=== PATIENT | female | born 1965 | race Caucasian/White ===

== ENCOUNTER 2020-07-31 15:25 | Emergency (ER) | payer BC, MEDICAID, SELFPAY ==
--- NOTE | 2020-07-31 15:29 | ED.UPPEXIN ---
HPI - Extremity Injury (Upper) General Chief Complaint: Extremity Injury, Upper Stated Complaint: lt wrist injury Time Seen by Provider: 07/31/20 15:29 Source: patient and RN notes reviewed History of Present Illness HPI narrative: Patient is a 54-year-old female who presents the urgent care with complaints of left wrist pain. Patient denies of any known injury or trauma. States that she has had tendinitis in the past and it feels very similar but is worsening in pain. Patient denies of any recent repetitive motion activities or strenuous V lifting, pushing, pulling. No other acute complaints. Patient states that she has taken Tylenol, ibuprofen, used a splint to the rest, as well as ice. No acute distress noted. Patient aware of the plan of care. Some parts of this dictation were generated by voice recognition software and may contain typographical and/or grammatical inaccuracies. Related Data Home Medications Medication Instructions Recorded Confirmed albuterol sulfate 90 mcg/actuation 2 inhalation INHALATION Q4-6H PRN 05/08/19 06/26/20 breath activated powder inhaler cholecalciferol (vitamin D3) 125 5,000 unit PO DAILY 05/08/19 06/26/20 mcg (5,000 unit) tablet melatonin 3 mg tablet 3 mg PO DAILY tablet 05/08/19 06/26/20 paroxetine HCl 20 mg tablet 20 mg PO DAILY 05/08/19 06/26/20 vitamin B complex 1 tablet PO DAILY 06/30/19 06/26/20 multivitamin 1 tablet PO DAILY 11/09/19 06/26/20 Allergies Allergy/AdvReac Type Severity Reaction Status Date / Time Penicillins Allergy Unknown unknown Verified 06/21/20 11:34 Review of Systems Review of Systems: Narrative: CONSTITUTIONAL: Denies fever, chills, or sweats. EYES: Denies visual changes, redness, or discharge. ENT: Denies rhinorrhea, congestion, sore throat, or otalgia. CARDIOVASCULAR: Denies chest pain, palpitations, or edema. RESPIRATORY: Denies cough or dyspnea. GASTROINTESTINAL: Denies abdominal pain, nausea, vomiting, or diarrhea. GENITOURINARY: Denies dysuria or hematuria. SKIN: Denies rash or itching. MUSCULOSKELETAL: Reports of left wrist pain NEUROLOGIC: Denies headache, numbness, or weakness. All other systems reviewed are negative, except as documented in HPI. [facility] Past Medical History Medical History (Updated 07/31/20 @ 15:50 by MERRITT Ronquillo) Chronic obstructive pulmonary disease, unspecified Diastolic dysfunction Environmental allergies History of colon polyps Hyperlipidemia Hypothyroidism (acquired) Insomnia, unspecified UNRULY (obstructive sleep apnea) Type 2 diabetes mellitus without complication, without long-term current use of insulin Vitamin B12 deficiency Vitamin D deficiency Surgical History Surgical History History of adenoidectomy age 6 History of foot surgery right foot Family History Family History Mother Cerebrovascular accident Carcinoma of colon Family history of multiple sclerosis Father Diabetes mellitus Other Family history of allergic disorder Social History Social History Social History: pt states smokes a pack to 2 packs a day Smoking packs per day: 1 Smoking cigarettes per day: 20.0 Smoking status: Current every day smoker Tobacco type: cigarettes Second hand tobacco smoke exposure: Yes Alcohol intake: current Substance use: never Substance use type: does not use Comments At the time of my signature, I reviewed and agree with the nursing past medical, surgical, social, and family history. There is no relevant family history pertinent to the patient complaint. Exam Narrative: Exam Narrative: GENERAL: This is a well-nourished, well-developed patient, in no apparent distress. HEAD: normocephalic, atraumatic. EYES: PERRL. Sclera clear/white. Vision is grossly intact. EARS: External ears normal NOSE: External n
[2020-07-31 15:32] VITALS: BP 162/80; PULSE 76; RESP 20; TEMP 36.7; O2SAT 99
[2020-07-31 15:37] VITALS: BP 162/80; PULSE 76; RESP 20; TEMP 36.7; O2SAT 99
== END 2020-07-31 15:56 | disposition home or self-care (01) ==
PROVIDERS: Emergency Provider Nurse Practitioner Family; PCP Family Medicine
DX: M77.8 Other enthesopathies, not elsewhere classified (principal); F17.210 Nicotine dependence, cigarettes, uncomplicated; J44.9 Chronic obstructive pulmonary disease, unspecified; E78.5 Hyperlipidemia, unspecified; E03.9 Hypothyroidism, unspecified; G47.33 Obstructive sleep apnea (adult) (pediatric); E11.9 Type 2 diabetes mellitus without complications; E55.9 Vitamin D deficiency, unspecified
CPT/HCPCS: 99213; G0463

== ENCOUNTER 2020-12-09 09:45 | Outpatient (CLI) | payer BC, SELFPAY ==
--- NOTE | ~2020-12-09 | CT_ITS ---
EXAMINATION: CT lung screening DATE: 12/09/2020 10:01 INDICATION: History of nicotine dependence TECHNIQUE: Computed tomography (CT) of the chest was performed without intravenous contrast. The dose -length product was 430.29 mGy-cm. Automated exposure control and iterative reconstruction technique were employed. COMPARISON: Chest x-ray dated 12/19/2010 FINDINGS: There is atherosclerosis of the aorta and coronary arteries. Heart size is normal. No thora cic lymphadenopathy. No significant pleural or pericardial effusion. There are multiple miliary nodul es in both lobes predominantly upper lobe measuring 3 mm or less. There is a 5 mm right lower lobe no dule which is subsolid, image 58. No pneumothorax. Mild thoracic spondylosis. The upper abdomen is gr ossly unremarkable. IMPRESSION: 1. Lung-RADS category 2: Benign appearance or behavior. Continue annual screening with noncontrast lo w-dose chest CT in 12 months. Reviewed, dictated and finalized at location A. IMPRESSION: 1. Lung-RADS category 2: Benign appearance or behavior. Continue annual screeni ng with noncontrast low-dose chest CT in 12 months.
== END 2020-12-09 09:46 | disposition home or self-care (01) ==
LOC: ANHIMG 09:46
PROVIDERS: PCP Family Medicine; Visit Provider Nurse Practitioner Family
DX: Z12.2 Encounter for screening for malignant neoplasm of respiratory organs (principal); Z87.891 Personal history of nicotine dependence
CPT/HCPCS: 71271

== ENCOUNTER 2021-12-14 07:51 | Outpatient (CLI) | payer BC, SELFPAY ==
--- NOTE | ~2021-12-14 | CT_ITS ---
EXAMINATION: CT lung screening DATE: 12/14/2021 08:07 INDICATION: Z87.891 - Personal history of nicotine dependence TECHNIQUE: Computed tomography (CT) of the chest was performed without intravenous contrast. Addition al 3D reconstructions utilizing coronal maximum intensity projection (MIP) were performed. Automated exposure control and iterative reconstruction technique were employed. The dose-length product was 37 6.08 mGy-cm. COMPARISON: None FINDINGS: Minimal emphysema. Interval decrease in number and size of multiple <4 mm nodules clustered in the ri ght upper lobe, several with tree-in-bud pattern which are likely infectious/inflammatory in etiology . There are a few additional unchanged <4 mm scattered bilateral pulmonary nodules. No change in the single largest 405 mm nodule in the superior segment of the right lower lobe. No new or enlarging pul monary nodules, pulmonary edema or pleural effusion. Heart size is normal. Minimal scattered atherosc lerotic coronary artery calcification. No pericardial effusion. Thoracic aorta is normal in caliber. No pathologically enlarged thoracic lymphadenopathy. Diffuse hepatic steatosis. Mild to moderate thor acic spondylosis. IMPRESSION: 1. Lung-RADS category 2: Benign appearance or behavior. Continue annual screening with noncontrast lo w-dose chest CT in 12 months. Reviewed, dictated and finalized at location B. IMPRESSION: 1. Lung-RADS category 2: Benign appearance or behavior. Continue annual screeni ng with noncontrast low-dose chest CT in 12 months.
== END 2021-12-14 07:52 | disposition home or self-care (01) ==
LOC: ANHIMG 07:52
PROVIDERS: PCP Family Medicine; Visit Provider Nurse Practitioner Family
DX: Z12.2 Encounter for screening for malignant neoplasm of respiratory organs (principal); Z87.891 Personal history of nicotine dependence
CPT/HCPCS: 71271

== ENCOUNTER 2022-01-12 00:01 | Day surgery (SDC) | payer BC, SELFPAY ==
[2021-10-30 10:08] VITALS: BMI 44.2
[2022-01-01 12:53] VITALS: BMI 44.4
[2022-01-12 07:01] VITALS: BP 136/67; PULSE 75; RESP 18; TEMP 36.1; O2SAT 96
[2022-01-12] MEDS: LACTATED RINGERS 1,000 ML 150 ML IV CONT (07:15)
[2022-01-12 07:23] LABS: Glucose Point of Care 223 mg/dl (65-105)
--- NOTE | 2022-01-12 07:27 | PM.IMHP ---
H&P: HPI History of Present Illness Date/Time: 01/12/22 07:27 Chief Complaint: Neoplasia screening. Narrative: This is a 56-year-old white female patient presents for neoplasia screening colonoscopy. Patient's family history is significant for colon cancer in father. Patient's current weight appetite and bowel movements are normal. Patient denies abdominal pain. She has had no bleeding. She has had benign hyperplastic colon polyps on previous examinations. Her current weight appetite bowel movements are normal. Review of Systems Review of Systems: Review of systems is noncontributory. [facility] Past Medical History Medical History (Updated 01/12/22 @ 07:29 by Simone Murray MD) Chronic obstructive pulmonary disease, unspecified Diastolic dysfunction Environmental allergies History of colon polyps Hyperlipidemia Hypothyroidism (acquired) Insomnia, unspecified Lung nodule UNRULY (obstructive sleep apnea) Type 2 diabetes mellitus without complication, without long-term current use of insulin Vitamin B12 deficiency Vitamin D deficiency Surgical History Surgical History (Updated 01/04/22 @ 15:56 by Jordana Wagner) H/O LEEP (~2006) History of adenoidectomy age 6 History of foot surgery right foot Family History Family History Mother Cerebrovascular accident Carcinoma of colon Family history of multiple sclerosis Father Diabetes mellitus Other Family history of allergic disorder Social History Social History (Updated 01/04/22 @ 18:08 by Elvie Lisa NP) Social History: 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[employer] Smoking packs per day: 0.5 Smoking cigarettes per day: 10.0 Years smoked: 40 Smoking pack-years: 20.00 Smoking status: Current every day smoker Tobacco type: cigarettes Second hand tobacco smoke exposure: Yes Additional smoking assessment comments: Smoking around 5 cigarettes per day Alcohol intake: current Alcohol use details: 1 beer socially Substance use: never Substance use type: does not use Living arrangements: alone Additional occupation/education comments: [employer] Gender identity (if verbalized by the patient): Female Spiritual care concerns: No Agree to blood products: Yes Meds Home Medications and Allergies Home Medications Medication Instructions Recorded Confirmed Type albuterol sulfate 90 mcg/actuation 2 inhalation inhalation Q4-6H PRN 05/08/19 01/04/22 History breath activated powder inhaler Shortness Of Breath (ProAir RespiClick) cholecalciferol (vitamin D3) 125 5,000 unit PO DAILY 05/08/19 01/04/22 History mcg (5,000 unit) tablet melatonin 3 mg tablet 3 mg PO HS 05/08/19 01/04/22 History paroxetine HCl 20 mg tablet (Paxil) 20 mg PO DAILY 05/08/19 01/04/22 History lancets 30 gauge #100 ea 05/15/19 01/04/22 Rx vitamin B complex (B 1 tablet PO DAILY 06/30/19 01/04/22 History Complex-Vitamin B12 tablet) multivitamin 1 tablet PO DAILY 11/09/19 01/04/22 History metformin 500 mg tablet 500 mg PO BID #60 tabs 01/04/22 01/12/22 Rx Allergies Allergy/AdvReac Type Severity Reaction Status Date / Time Penicillins Allergy Mild Hives Verified 01/12/22 06:56 Vital Signs Vital Signs - 24 hr 01/12/22 07:01 Temperature 97 F L Pulse Rate 75 Respiratory Rate 18 Blood Pressure 136/67 Pulse Oximetry 96 Oxygen Delivery Room Air Exam Narrative: Physical exam reveals patient be alert. Vital signs stable. HEENT exam is unremarkable. Patient is anicteric. Lungs are clear to auscultation and percussion. Heart is without murmur or extra sounds. Abdominal exam bowel sounds are present soft nontender with no organomegaly. Digital external rectal exam is normal. Assessment and Plan Assessment and plan (1) Family history of colon cancer in father: Code(s): Z80.0 - Family history of malignant neoplasm of digestive organs
--- NOTE | 2022-01-12 07:42 | WPDANESEPPF ---
Anes - Initial Pre Proc Eval Procedure: Operation Date: 01/12/22 08:00 Proposed Procedures p Screening Colonoscopy - Simone Murray MD Date/Time: 01/12/22 07:42 Surgeon: Simone Murray MD Pre Op Diagnosis: neoplasm , hx of colon polyps, fm hx colon ca Patient Data Age: 56 Gender: F Height: 1.68 m Weight: 125.2 kg Last Vital Signs Temp 36.1 C L 01/12/22 07:01 Pulse 75 01/12/22 07:01 Resp 18 01/12/22 07:01 BP 136/67 01/12/22 07:01 Pulse Ox 96 01/12/22 07:01 O2 Del Method Room Air 01/12/22 07:01 Allergies Allergy/AdvReac Type Severity Reaction Status Date / Time Penicillins Allergy Mild Hives Verified 01/12/22 06:56 Home Medications Medication Instructions Recorded Confirmed Type albuterol sulfate 90 mcg/actuation 2 inhalation inhalation Q4-6H PRN 05/08/19 01/04/22 History breath activated powder inhaler Shortness Of Breath (ProAir RespiClick) cholecalciferol (vitamin D3) 125 5,000 unit PO DAILY 05/08/19 01/04/22 History mcg (5,000 unit) tablet melatonin 3 mg tablet 3 mg PO HS 05/08/19 01/04/22 History paroxetine HCl 20 mg tablet (Paxil) 20 mg PO DAILY 05/08/19 01/04/22 History lancets 30 gauge #100 ea 05/15/19 01/04/22 Rx vitamin B complex (B 1 tablet PO DAILY 06/30/19 01/04/22 History Complex-Vitamin B12 tablet) multivitamin 1 tablet PO DAILY 11/09/19 01/04/22 History metformin 500 mg tablet 500 mg PO BID #60 tabs 01/04/22 01/12/22 Rx Laboratory Tests 01/12/22 07:13 POC Capillary Glucose 223 mg/dl H mg/dl (65-105) Patient hx anesthesia problems: none Family hx anesthesia problems: none Results Review: All pre-operative results and documents have been reviewed as part of the pre-operative evaluation. [facility] Past Medical History Medical History Chronic obstructive pulmonary disease, unspecified Diastolic dysfunction Environmental allergies History of colon polyps Hyperlipidemia Hypothyroidism (acquired) Insomnia, unspecified Lung nodule UNRULY (obstructive sleep apnea) Type 2 diabetes mellitus without complication, without long-term current use of insulin Vitamin B12 deficiency Vitamin D deficiency Surgical History Surgical History H/O LEEP (~2006) History of adenoidectomy age 6 History of foot surgery right foot Family History Family History Mother Cerebrovascular accident Carcinoma of colon Family history of multiple sclerosis Father Diabetes mellitus Other Family history of allergic disorder Social History Social History Social History: 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[employer] Smoking packs per day: 0.5 Smoking cigarettes per day: 10.0 Years smoked: 40 Smoking pack-years: 20.00 Smoking status: Current every day smoker Tobacco type: cigarettes Second hand tobacco smoke exposure: Yes Additional smoking assessment comments: Smoking around 5 cigarettes per day Alcohol intake: current Alcohol use details: 1 beer socially Substance use: never Substance use type: does not use Living arrangements: alone Additional occupation/education comments: [employer] Gender identity (if verbalized by the patient): Female Spiritual care concerns: No Agree to blood products: Yes Anes - Eval Final PreProcedure Day of Procedure 01/12/22 07:42 Patient weight: morbidly obese Heart: regular rate and rhythm Lungs: decreased breath sounds Airway: Mallampati scale class II Neurological: alert and oriented Last oral intake: >/= 8 hours ASA classification: III Emergent: no Anesthetic plan: proceed Anesthesia type and monitoring: general GIVS and standard monitoring Results Review: All pre-operative results and documents have been reviewed as ulises
[2022-01-12] MEDS: SIMETHICONE ORAL SUSPENSION 20 MG/0.3 ML 30 ML BOTTLE 0.6 ML IRRIGATION (08:11)
[2022-01-12 08:17] VITALS: BP 133/84; PULSE 75; RESP 19; O2SAT 96
[2022-01-12 08:27] VITALS: BP 129/82; PULSE 75; RESP 20; O2SAT 97
[2022-01-12 08:37] VITALS: BP 131/74; PULSE 66; RESP 18; O2SAT 97
== END 2022-01-12 08:50 | disposition home or self-care (01) ==
PROVIDERS: PCP Family Medicine; Visit Provider Internal Medicine Gastroenterology
PROC: 0DJD8ZZ Inspection of Lower Intestinal Tract, Via Natural or Artificial Opening Endoscopic (ICD-10-PCS; CPT 45378; principal; 2022-01-12 08:00)
DX: Z12.11 Encounter for screening for malignant neoplasm of colon (principal); Z80.0 Family history of malignant neoplasm of digestive organs; K64.8 Other hemorrhoids; Z86.010 Personal history of colon polyps; Z79.84 Long term (current) use of oral hypoglycemic drugs; Z79.51 Long term (current) use of inhaled steroids; J44.9 Chronic obstructive pulmonary disease, unspecified; E78.5 Hyperlipidemia, unspecified; G47.33 Obstructive sleep apnea (adult) (pediatric); E55.9 Vitamin D deficiency, unspecified; E53.0 Riboflavin deficiency; E03.9 Hypothyroidism, unspecified; I51.9 Heart disease, unspecified; E11.9 Type 2 diabetes mellitus without complications; F17.210 Nicotine dependence, cigarettes, uncomplicated; E66.9 Obesity, unspecified; Z68.41 Body mass index [BMI] 40.0-44.9, adult
CPT/HCPCS: 45378; 82948; J2704; J7120

== ENCOUNTER 2022-07-19 07:44 | Emergency (ER) | payer OTHER, SELFPAY ==
--- NOTE | ~2022-07-19 | XR_ITS ---
EXAMINATION: XR knee RT min 4V DATE: 07/19/2022 08:20 INDICATION: Bilateral bruising and skin tear at the right knee post fall TECHNIQUE: Anteroposterior, 2 oblique and crosstable lateral views of the right knee were obtained COMPARISON: None. FINDINGS: Alignment is normal. No fracture. Joint spaces appear normal on nonweightbearing imaging. Tiny enthe sophyte at the patellar insertion of the distal quadriceps tendon. Mild soft tissue swelling about th e anterolateral aspect of the right knee. No radiopaque foreign bodies. No joint effusion/layering li pohemarthrosis. IMPRESSION: 1. No right knee joint effusion or acute osseous abnormality. Reviewed, dictated and finalized at location L. [employer]
--- NOTE | ~2022-07-19 | CT_ITS ---
CT Facial Bones Clinical Indication: Trauma Technique: Contiguous axial scans were obtained through the facial bones followed by coronal and sagi ttal reconstructions. Dose reduction technique was used on this scan by utilizing automated exposure control and iterative reconstruction technique. The dose-length product (DLP) was 471.56 mGy-cm. Findings: No definite acute fractures are identified. Suspected chronic fracture deformity of the yuriy al bones. The visualized paranasal sinuses are clear. Intraorbital soft tissues appear normal. Impression: Suspected chronic fracture deformity of the nasal bones. No definite acute fracture seen. Reviewed, dictated and finalized at location . 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 No definite acute frac ture seen.
[2022-07-19 07:48] VITALS: BP 142/82; PULSE 72; RESP 16; TEMP 36.7; O2SAT 94
--- NOTE | 2022-07-19 08:04 | ED.FALL ---
HPI - Fall General Chief Complaint: Fall Stated Complaint: fall 2 days ago/knee injury Time Seen by Provider: 07/19/22 07:48 Source: RN notes reviewed History of Present Illness HPI Narrative: Patient presents emergency department from home for a fall. Patient states that 2 days ago she was pushing a wheelchair when she believes her purse became stuck on the chair causing her to fall forward she states that she struck her right knee on the ground as well as hit her face while she was wearing glasses. States that since that time she has had pain in her right knee with some swelling and ecchymosis present states she is able to walk on the knee but notes increased pain with bending the knee and standing on the knee she denies any pain in the ankle or hip she also notes some bruising on the bilateral eyes she states centimeters T did come out and evaluate her states she had no large wounds but does have some small abrasions on the nose and has since developed ecchymosis in the bilateral eyes no epistaxis at that time she denies any loss of consciousness she denies any chest pain or shortness of breath denies any abdominal pain denies any back pain or any other symptoms Related Data Home Medications Medication Instructions Recorded Confirmed albuterol sulfate 90 mcg/actuation 2 inhalation inhalation Q4-6H PRN 05/08/19 07/17/22 breath activated powder inhaler Shortness Of Breath (ProAir RespiClick) cholecalciferol (vitamin D3) 125 5,000 unit PO DAILY 05/08/19 07/17/22 mcg (5,000 unit) tablet melatonin 3 mg tablet 3 mg PO HS 05/08/19 07/17/22 paroxetine HCl 20 mg tablet (Paxil) 20 mg PO DAILY 05/08/19 07/17/22 vitamin B complex (B 1 tablet PO DAILY 06/30/19 07/17/22 Complex-Vitamin B12 tablet) multivitamin 1 tablet PO DAILY 11/09/19 07/17/22 Allergies Allergy/AdvReac Type Severity Reaction Status Date / Time Penicillins Allergy Mild Hives Verified 07/17/22 09:01 Review of Systems Review of Systems: Gen.: Denies fevers or chills Eyes: Denies eye pain or visual change ENT: Denies congestion Respiratory: Denies shortness of breath or cough CV: Denies chest pain or palpitations GI: Denies abdominal pain nausea, emesis Musculoskeletal: See HPI Neuro: Denies numbness, tingling, weakness or focal weakness Skin: Reports abrasion Except as documented, all other systems reviewed and negative [facility] Past Medical History Medical History Abscess, perineum Body mass index (BMI) 35 or more (12/03/18) Chronic obstructive pulmonary disease, unspecified Diabetes 1.5, managed as type 2 Diastolic dysfunction YUEN (dyspnea on exertion) Environmental allergies Grade III diastolic dysfunction History of colon polyps Hyperlipidemia Hypothyroidism (acquired) Insomnia, unspecified Intermittent diarrhea Lung nodule UNRULY (obstructive sleep apnea) Postmenopausal state Type 2 diabetes mellitus without complication, without long-term current use of insulin Vitamin B12 deficiency Vitamin D deficiency Surgical History Surgical History H/O LEEP (~2006) History of adenoidectomy age 6 History of foot surgery right foot Family History Family History Mother Cerebrovascular accident Carcinoma of colon Family history of multiple sclerosis Father Diabetes mellitus Other Family history of allergic disorder Social History Social History Social History: 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
== END 2022-07-19 09:01 | disposition home or self-care (01) ==
PROVIDERS: Emergency Provider Emergency Medicine; PCP Family Medicine
DX: S80.01XA Contusion of right knee, initial encounter (principal); S05.12XA Contusion of eyeball and orbital tissues, left eye, initial encounter; S05.11XA Contusion of eyeball and orbital tissues, right eye, initial encounter; S00.31XA Abrasion of nose, initial encounter; J44.9 Chronic obstructive pulmonary disease, unspecified; E13.9 Other specified diabetes mellitus without complications; E78.5 Hyperlipidemia, unspecified; E03.9 Hypothyroidism, unspecified; G47.33 Obstructive sleep apnea (adult) (pediatric); E53.8 Deficiency of other specified B group vitamins; E55.9 Vitamin D deficiency, unspecified; Z86.010 Personal history of colon polyps; F17.210 Nicotine dependence, cigarettes, uncomplicated; Z79.84 Long term (current) use of oral hypoglycemic drugs; W18.39XA Other fall on same level, initial encounter
CPT/HCPCS: 70486; 73564; 99284

== ENCOUNTER 2022-08-20 08:22 | Outpatient (CLI) | payer OTHER, SELFPAY ==
--- NOTE | ~2022-08-20 | MM_ITS ---
EXAMINATION: MM screening mary BI w jamal HISTORY: Screening mammogram TECHNIQUE: Craniocaudal and mediolateral oblique 3-D tomosynthesis images were obtained and synthetic 2-D images were generated. CAD analysis was submitted and interpreted. COMPARISON: 07/15/2019, 10/10/2017, 07/20/2016 bilateral screening mammogram examinations BREAST PARENCHYMAL COMPOSITION: There are scattered areas of fibroglandular density. FINDINGS: There is no evidence of suspicious mass, calcification, or architectural distortion to sugg est malignancy in either breast. There has been no suspicious interval change. IMPRESSION: 1. No mammographic evidence of malignancy. 2. Recommend routine screening mammography in one year. BI-RADS Category 1: Negative Reviewed, dictated and finalized at location A. ESS PUMPER
== END 2022-08-20 08:23 | disposition home or self-care (01) ==
LOC: ANHIMG 08:25
PROVIDERS: PCP Family Medicine; Visit Provider Nurse Practitioner Obstetrics & Gynecology
DX: Z12.31 Encounter for screening mammogram for malignant neoplasm of breast (principal)
CPT/HCPCS: 77063; 77067

== ENCOUNTER 2022-12-17 12:58 | Outpatient (CLI) | payer OTHER, SELFPAY ==
--- NOTE | ~2022-12-17 | CT_ITS ---
CT Scan of the Chest without Contrast: Clinical Indication: Lung cancer screening, personal history of nicotine dependence Technique: Contiguous sections were acquired throughout the chest without intravenous contrast. Dose reduction technique was used on this scan by utilizing automated exposure control and iterative recon struction technique. The dose-length product (DLP) was 508.71 mGy-cm. COMPARISON: 12/14/2021 and 12/09/2020 Findings: There is no evidence of any significant mediastinal, hilar or axillary lymphadenopathy. The mediastin al soft tissues appear normal. There is no evidence of pleural or pericardial effusion. Multiple tiny, peripheral right upper lobe pulmonary nodules are stable from prior exam. Stable subce ntimeter right middle lobe pulmonary nodules noted. Linear scarring at the lung bases is noted. Images through the upper abdomen reveal no abnormalities. Impression: Lung RADS 2: Benign appearance. 12 month follow-up screening CT advised. Reviewed, dictated and finalized at [facility]. Impression: Lung RADS 2: Benign appearance. 12 month follow-up screening CT advised.
== END 2022-12-17 12:59 | disposition home or self-care (01) ==
LOC: ANHIMG 12:59
PROVIDERS: PCP Family Medicine; Visit Provider Physician Assistant
DX: Z12.2 Encounter for screening for malignant neoplasm of respiratory organs (principal); F17.210 Nicotine dependence, cigarettes, uncomplicated
CPT/HCPCS: 71271

== ENCOUNTER 2023-12-06 10:00 | Outpatient (CLI) | payer OTHER, SELFPAY ==
--- NOTE | 2023-12-06 10:06 | EST_ITS ---
Patient Info Name: Bethany Escobar Age: 57 years : 1965 Gender: Female Ht: 68 in Wt: 280 lbs BSA: 2.53 m2 HR: 73 bpm BP: 143 / 83 mmHg Heart Rhythm: Sinus Rhythm Exam Date: 12/06/2023 10:16 AM Exam Location: [facility] Lab Patient Status: Outpatient Admit Date: 12/06/2023 Staff Ordering Physician: Colton, Tereza Carlson APRN Attending Provider: Colton, Tereza Carlson APRN Exercise Technologist: Nisha Copeland CT Exercise Physician: Nic Huerta DO Exam Type: CA stress test treadmill Study Info Indications R53.82 - Chronic fatigue, unspecified A treadmill exercise stress test was performed. Summary 1. 1. Negative Andrew exercise stress test for ischemic ST changes by ECG criteria. However, achieved only 76% MPHR for age group which reduces sensitivity of the test. 2. 2. Poor functional capacity, achieving 4 METs of workload. 3. 3. Appropriate HR response to exercise. 4. 4. Appropriate HR recovery at 1 minute post exercise. 5. 5. No imaging with stress testing. 6. 6. Patient informed of the above results. Protocol: Andrew Stress ECG Details Stage: REST Duration (min): 1 min : 3 sec Speed (mph): 0.0 Grade (%): 0 HR (bpm): 73 SBP (mmHg): 132 DBP (mmHg): 82 METS: --- Stage: REST Duration (min): 15 min : 45 sec Speed (mph): 0.0 Grade (%): 0 HR (bpm): 74 SBP (mmHg): 132 DBP (mmHg): 82 METS: --- Stage: STAGE 1 Duration (min): 1 min : 0 sec Speed (mph): 1.7 Grade (%): 10 HR (bpm): 104 SBP (mmHg): 132 DBP (mmHg): 82 METS: --- Stage: STAGE 1 Duration (min): 1 min : 50 sec Speed (mph): 1.7 Grade (%): 10 HR (bpm): 120 SBP (mmHg): 132 DBP (mmHg): 82 METS: --- Stage: RECOVERY Duration (min): 0 min : 9 sec Speed (mph): 0.0 Grade (%): 0 HR (bpm): 123 SBP (mmHg): 132 DBP (mmHg): 82 METS: --- Stage: RECOVERY Duration (min): 1 min : 9 sec Speed (mph): 0.0 Grade (%): 0 HR (bpm): 98 SBP (mmHg): 132 DBP (mmHg): 82 METS: --- Stage: RECOVERY Duration (min): 2 min : 9 sec Speed (mph): 0.0 Grade (%): 0 HR (bpm): 82 SBP (mmHg): 132 DBP (mmHg): 82 METS: --- Stage: RECOVERY Duration (min): 2 min : 48 sec Speed (mph): 0.0 Grade (%): 0 HR (bpm): 80 SBP (mmHg): 187 DBP (mmHg): 77 METS: --- Rest HR: 74 bpm Peak HR: 123 bpm Rest Sys BP: 132 mmHg Peak Sys BP: 187 mmHg Max Pred HR: 162 bpm % Max Pred HR: 76 % Target HR: 138 bpm Max RPP: 23,001 bpm*mmHg Clark Score: -8 Termination Reason: Maximal effort/unable to continue Cardiac Symptoms: SOB and leg pain behind both knees Max ST Seg Deviation: -2.00 mm Total Time: 1 min : 50 sec Rest Bailey BP: 82 mmHg Peak Bailey BP: 77 mmHg Angina Score: None Total METS: 4.3 Resting ECG Sinus rhythm. Stress ECG No ST changes. Arrhythmias None. Report Signatures
== END 2023-12-06 10:01 | disposition home or self-care (01) ==
PROVIDERS: PCP Family Medicine; Visit Provider Nurse Practitioner Family
DX: R53.83 Other fatigue (principal)
CPT/HCPCS: 93017

== ENCOUNTER 2023-12-19 10:07 | Outpatient (CLI) | payer OTHER, SELFPAY ==
--- NOTE | ~2023-12-19 | CT_ITS ---
CT Scan of the Chest without Contrast: Clinical Indication: Lung cancer screening, nicotine dependence Technique: Contiguous sections were acquired throughout the chest without intravenous contrast. Dose reduction technique was used on this scan by utilizing automated exposure control and iterative recon struction technique. The dose-length product (DLP) was 505.64 mGy-cm. COMPARISON: 12/17/2022 Findings: There is no evidence of any significant mediastinal, hilar or axillary lymphadenopathy. The mediastin al soft tissues appear normal. There is no evidence of pleural or pericardial effusion. Peripheral micronodules and/or interstitial change, especially focally in the right upper lobe anteri laura, is unchanged from prior exam. No new or suspicious pulmonary nodule seen. Images through the upper abdomen reveal no abnormalities. Impression: Lung RADS 2: Benign appearance. 12 month follow-up screening CT advised. Reviewed, dictated and finalized at [facility]. Impression: Lung RADS 2: Benign appearance. 12 month follow-up screening CT advised.
== END 2023-12-19 10:08 | disposition home or self-care (01) ==
LOC: ANHIMG 10:08
PROVIDERS: PCP Family Medicine; Visit Provider Physician Assistant
DX: Z12.2 Encounter for screening for malignant neoplasm of respiratory organs (principal); Z87.891 Personal history of nicotine dependence
CPT/HCPCS: 71271

== ENCOUNTER 2025-03-08 16:00 | Outpatient (CLI) | payer OTHER, SELFPAY ==
--- NOTE | ~2025-03-08 | CT_ITS ---
EXAMINATION:CT lung screening DATE: 03/08/2025 16:26 INDICATION: Personal history of nicotine dependence. TECHNIQUE: Computed tomography (CT) of the chest was performed without intravenous contrast. Automated exposure control and iterative reconstruction technique were employed. The dose-length product (DLP) was 461.26 mGy-cm. COMPARISON: Chest CT 12/19/2023 FINDINGS: There is mild atelectasis bilaterally. There are subpleural bands in the lower lobes. There are multiple scattered nodules in the lungs measuring up to 6 mm in right upper lobe. The 6 mm right upper lobe nodule is worsened. No pleural effusion. The heart size is normal. There are coronary artery calcifications. No pericardial effusion. There is diffuse hepatic steatosis. There is mild thoracic spondylosis. IMPRESSION: 1. Lung RADS category 4A: Suspicious. Noncontrast low-dose chest CT is recommended in 3 months. Reviewed, dictated and finalized at location E. IMPRESSION: 1. Lung RADS category 4A: Suspicious. Noncontrast low-dose chest CT is recommen ded in 3 months.
--- OUTSIDE RECORDS SUMMARY | 2025-03-08 18:45 | XMS_ITS | Clinical Summary ---
Author Organization [address] Address [address] [place] [id number] Care Team Providers Care [employer] Attendant Name Role Phone Marcela Montoya MD Primary Care Provider Allergies Active Allergy Reactions Criticality Noted Date Comments Penicillins Hives Medium 02/06/2024 Medications metFORMIN (GLUCOPHAGE) 1,000 mg tablet Take 1 tablet (1,000 mg total) by mouth 2 (two) times a day 4 Active atorvastatin (LIPITOR) 10 mg tablet Take 1 tablet (10 mg total) by mouth nightly at bedtime 4 Active PARoxetine (PAXIL) 40 mg tablet Take 1 tablet (40 mg total) by mouth every morning Active mupirocin (BACTROBAN) 2 % ointmentIndicat ions:Cellulitis of left lower extremity Apply topically 3 (three) times a day 22 g 4 Active lisinopriL (PRINIVIL,ZESTR IL) 10 mg tablet Take 1 tablet (10 mg total) by mouth daily 5 Active tiotropium-olod ateroL (STIOLTO) 2.5-2.5 mcg/actuation inhaler 2 puffs daily Active fluticasone propionate (FLONASE) 50 mcg/actuation nasal sprayIndication s:Bilateral acute serous otitis media, recurrence not specified Administer 2 sprays into each nostril daily for 14 days 1 each 5 Active Active Problems No known active problems Social History Tobacco Use Types Packs/Day Years Used Date Smoking Tobacco: Never Assessed Comments Unknown Sex and Gender Information Value Date Recorded Sex Assigned at Not on file 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 Gender Identity Not on file Sexual Orientation Not on file Obstetrics History Last Filed Vital Signs Vital Sign Reading Time Taken Comments Blood Pressure 152/64 10/08/2024 3:32 PM CDT Pulse 80 10/08/2024 3:32 PM CDT Temperature 37.1 C (98.8 F) 10/08/2024 3:32 PM CDT Respiratory Rate 24 10/08/2024 3:32 PM CDT Oxygen Saturation 95% 10/08/2024 3:57 PM CDT Inhaled Oxygen Concentration - - Weight 130.6 kg (288 lb) 10/08/2024 3:32 PM CDT Height 167.6 cm (5' 6) 08/14/2024 5:00 PM 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 Body Mass Index 46.48 08/14/2024 5:00 PM 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 Plan of Treatment Health Maintenance Due Date Last Done Comments Cervical Cancer Screening 1965 Colon Cancer Screening-Colonoscopy 1965 Depression Screening 1965 Hepatitis C Screening 1965 Hepatitis B Screening 1982 Regular Well Visit/Exam 18-64 1982 Zoster Vaccine (1 of 2) 2014 Breast Cancer Screening-Mammogram 08/20/2023 08/20/2022 DTaP/Tdap/Td Vaccine (2 - Td or Tdap) 03/17/2024 03/17/2014 Covid-19 Vaccine (4 - 2024-2 6 season) 2025 06/09/2021, 10/09/2020, 09/18/2020 Influenza Vaccine (#1) 2025 Pneumococcal vaccine <65 Aged Out No longer eligible based on patient's age to complete this topic Insurance [employer] [facility] HMO Care Teams Central [employer] Attendant Relationship Specialty Start Date End Date Marcela Montoya MD [facility] [address] [place] [address] PCP - General Family Practice 02/18/24
== END 2025-03-08 16:01 | disposition home or self-care (01) ==
PROVIDERS: PCP Nurse Practitioner Family; Visit Provider Physician Assistant
DX: Z12.2 Encounter for screening for malignant neoplasm of respiratory organs (principal); Z87.891 Personal history of nicotine dependence; R91.8 Other nonspecific abnormal finding of lung field
CPT/HCPCS: 71271

== ENCOUNTER 2025-03-17 09:33 | Outpatient (CLI) | payer OTHER, SELFPAY ==
--- NOTE | ~2025-03-17 | DEXA_ITS ---
Bone Density Report Name: IZZY GRULLON Age: 59 Sex: Female Ethnicity: White Date of : 1965 Indication: postmenopausal; screening for osteoporosis; height loss; Referring Provider: AR, ALANIS Khoury Study: Bone densitometry was performed. Exam Date: March 17, 2025 Accession number: [id number] Bone Density: Region BMD T-score Z-score Classification AP Spine(L1-L4) 1.196 1.4 2.8 Normal Femoral Neck (Left) 0.828 -0.2 1.1 Normal Total Hip (Left) 1.193 2.1 3.0 Normal Femoral Neck (Right) 0.871 0.2 1.5 Normal Total Hip (Right) 1.253 2.6 3.5 Normal Total Hip Mean 1.223 2.4 3.3 Normal World Health Organization criteria for BMD impression classify patients as: Normal (T-score at or above -1.0), Osteopenia (T-score between -1.0 and -2.5), or Osteoporosis (T-score at or below -2.5). 10-year Fracture Risk: FRAX not reported because: All T-scores for Spine Total, Hip Total, Femoral Neck at or above -1.0 Clinical Information Provided by Patient: Smokes Has used the following medications: Vitamin D Patient maximum height was 69.0 Menopause Age: 44 No regular weight bearing exercise Drinks caffeinated beverages Onset of menses at age 12 Number of children 0 Impression: The patient has normal bone mass. The patient has risk factors, including: smoking. Discussion: BONE DENSITY IS ABOVE THE MINIMUM DESIRABLE LEVEL AT ALL SKELETAL SITES TESTED. This patient?s bone mineral density is above the minimum desirable level (T-score -1.0 or better) at all sites measured. The patient should follow a healthful lifestyle (good nutrition with adequate calcium and vitamin D, and appropriate weight-bearing exercise). Follow-Up: Consider repeating this study in 5 years or sooner if there is some new clinical indication. Reported by: EMERY on 03/17/2025 10:20:00 AM. Reviewed, dictated and finalized at location A.
--- OUTSIDE RECORDS SUMMARY | 2025-03-17 10:22 | XMS_ITS | Clinical Summary ---
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 HMO Care Teams Rack Cleaner Relationship Specialty Start Date End Date Marcela Montoya MD [facility] [address] [place] [address] PCP - General Family Practice 02/18/24
== END 2025-03-17 09:34 | disposition home or self-care (01) ==
LOC: ANHFOHIMG 09:41
PROVIDERS: PCP Nurse Practitioner Family; Visit Provider Nurse Practitioner
DX: Z13.820 Encounter for screening for osteoporosis (principal)
CPT/HCPCS: 77080

== ENCOUNTER 2025-06-03 09:48 | Outpatient (CLI) | payer OTHER, SELFPAY ==
--- NOTE | ~2025-06-03 | CT_ITS ---
EXAMINATION:CT diagnostic chest wo con DATE: 06/03/2025 10:05 INDICATION: Abnormal test TECHNIQUE: Computed tomography (CT) of the chest was performed without intravenous contrast. The dose-length product (DLP) was 787.14 mGy-cm. COMPARISON: March 08, 2025 and December 19, 2023 FINDINGS: Right upper lobe nodules not grossly changed from previous exams. No new or suspicious nodules or masses. Heart and great vessels stable. No acute process seen in the visualized portions of the upper abdomen or extrathoracic soft tissues. IMPRESSION: 1. No gross interval change from the March 08 exam. Findings probably represent benign nodules. 2. Lung RADS 3. Correlate with follow-up low-dose lung cancer screening chest CT in 6 months or sooner if clinically appropriate. Reviewed, dictated and finalized at location A. INTERNSHIP IMPRESSION: 1. No gross interval change from the March 08 exam. Findings probably repre sent benign nodules. 2. Lung RADS 3. Correlate with follow-up low-dose lung cancer screening chest CT in 6 months or sooner if clinically appropriate.
== END 2025-06-03 09:49 | disposition home or self-care (01) ==
PROVIDERS: PCP Nurse Practitioner Family; Visit Provider Nurse Practitioner Family
DX: R91.8 Other nonspecific abnormal finding of lung field (principal)
CPT/HCPCS: 71250